=== PATIENT | male | born 1965 | race American Indian/Alaskan Native ===

== ENCOUNTER 2017-12-26 11:47 | Day surgery (SDC) | payer BC ==
[2017-12-22 14:58] VITALS: BMI 34.7
[2017-12-26 12:46] LABS: BASO # 0.02 K/mm3 (0.0-2.0); BASO % 0.5 % (0.0-3.0); EOS # 0.1 (0.0-0.7); EOS % 1.6 % (1.5-5.0); GRAN # 2.71 (1.4-6.5); HEMOGLOBIN 15.5 g/dL (14.0-18.0); LYMPH # 1.3 (1.2-3.4); LYMPH % 28.8 % (22.0-35.0); MEAN CELL VOLUME 82.1 fl (80.0-105.0); MEAN CORPUSCULAR HEMOGLOBIN 27.7 pg (25.0-35.0); MEAN CORPUSCULAR HGB CONC 33.8 g/dl (31.0-37.0); MONO # 0.3 (0.1-0.6); MONO % 7.1 % (1.0-6.0); RBC 5.59 10^6/uL (3.5-6.1); RED CELL DISTRIBUTION WIDTH 13.7 % (11.5-14.5); WHITE BLOOD COUNT 4.4 10^3/ul (4.5-11.0)
[2017-12-26 12:55] LABS: INR 1.1; PARTIAL THROMBOPLASTIN TIME 22.9 Seconds (25.1-36.5); PROTHROMBIN TIME 12.7 SECONDS (9.4-12.5)
[2017-12-26 12:56] LABS: BLOOD UREA NITROGEN 15 mg/dL (7-21); CALCIUM 9.7 mg/dL (8.4-10.5); GFR NON-AFRICAN AMERICAN > 60; HDL CHOLESTEROL 63 mg/dL (29-60)
[2017-12-26 13:06] LABS: LDL CHOLESTEROL 67 mg/dL (0-129)
[2017-12-26] MEDS ORDERED: Iohexol 350mgl/ml 50 ML ONE (13:19)
[2017-12-26] MEDS ORDERED: Iodixanol 320 MG/ML 200 ML BOTTLE IV ONE (13:19)
[2017-12-26] MEDS ORDERED: Nitroglycerin 50mg in D5W 0 MG/0 ML BOTTLE IV ONE (13:20)
[2017-12-26] MEDS ORDERED: Midazolam 2 MG/2 ML VIAL ONE ×3 (13:32→13:54)
[2017-12-26] MEDS ORDERED: Phenylephrine 10 mg/ml Inj ONE (13:47)
[2017-12-26] MEDS ORDERED: Sodium Chloride 0.9% 1,000 ML IV SCH (14:15)
[2017-12-26 14:46] VITALS: TEMP 98.2
--- NOTE | 2017-12-26 15:05 | CARDCATH ---
Copied To: Fernando Combs MD Attending MD: Fernando Combs MD PROCEDURE DATE: 12/26/2017 CARDIAC CATHETERIZATION HISTORY: The patient is a 52-year-old male who presents with chest discomfort. Stress test was abnormal. The patient suffers from mild hypertension and hypercholesterolemia. Because of this, cardiac catheterization was recommended. PROCEDURE: Left heart catheterization with coronary arteriography and left ventriculogram and supra-aortic valvular injection. The right femoral artery was cannulated with 6-[place] sheath. There were no complications. I performed moderate sedation, which included the presence of an independent trained observer that assisted in monitoring the patient's level of consciousness and physiologic status. After administration of Versed and fentanyl, my intra-service time was 15 minutes. The findings on catheterization revealed a left ventricle that contracted in a low-normal systolic function. Estimated ejection fraction of 50-55%. His coronary anatomy revealed a right dominant circulation. The RCA revealed intimal irregularities without significant stenoses. The left main artery was unremarkable. The LAD revealed intimal irregularities with a 50% stenosis in the distal portion of the LAD. The circumflex artery and obtuse marginal branches were free of significant disease. Supra-aortic valvular injection revealed no aortic insufficiency. Angio-Seal was used to close the femoral artery site. The patient tolerated the procedure well. In summary, the procedure revealed low normal LV function with an EF of approximately 50%. Cardiac catheterization reveals atherosclerosis throughout its coronary tree with single vessel CAD with a 50% stenosis in the distal LAD. There was no aortic insufficiency. Given these findings, the patient's treatment will be continued medical therapy. I have discussed with the patient about his need for cardiac risk reduction program. We will continue his aspirin and statin therapy. weight loss program as well as an exercise program. Fernando Combs MD
[2017-12-26 17:42] VITALS: O2SAT 97
[2017-12-26 17:44] VITALS: BP 126/82; PULSE 54; RESP 18
--- NOTE | 2017-12-26 21:31 | CARD ---
APPROVED REPORT Date of service: 12/26/2017 EKG Measurement Heart [id number] <Conclusion> Sinus bradycardia Otherwise normal ECG
== END 2017-12-26 19:35 | disposition home or self-care (01) ==
LOC: CATH 11:47
PROVIDERS: ATTEND Internal Medicine Cardiovascular Disease
DX: I25.10 Atherosclerotic heart disease of native coronary artery without angina pectoris (principal); E78.00 Pure hypercholesterolemia, unspecified; I10 Essential (primary) hypertension
CPT/HCPCS: 36415; 80048; 80061; 85025; 85610; 85730; 86850; 86900; 93005; 93458; 99152; 99153; C1760; C1769; C2629; J1644; J2250; J3010; J7030; Q9966